=== PATIENT | male | born 1995 | race Hispanic/Latino ===

== ENCOUNTER 2017-06-19 19:35 | Emergency (ER) | payer OTHER ==
[2017-06-19 20:52] LABS: Bilirubin Negative (Negative); Blood, Urine Negative (Negative); Clarity CLEAR (Clear); Glucose, Urine (Dipstick) Negative (Negative); Leukocyte Negative (Negative); Nitrite Negative (Negative); Protein, Urine (Dipstick) Negative (Neg-Trace); Specific Gravity, Urine 1.024 (1.002-1.036); Urobilinogen 0.2 mg/dL (0.2-1.0)
[2017-06-20 01:05] LABS: #Basophils 0.1 thou/uL (0.0-0.2); #Eosinphils 0.2 thou/uL (0.0-0.7); #Lymphocytes 2.2 thou/uL (1.20-3.40); #Monocytes 0.8 thou/uL (0.11-0.59); #Neutrophils 4.4 thou/uL (1.40-6.50); %Eosinophils 2.8 % (0.0-10.0); %Lymphocytes 28.4 % (21.0-51.0); %Monocytes 9.8 % (0.0-10.0); Hemoglobin 15.7 g/dL (14.0-18.0); Mean Corpuscular HGB CONC 33.5 g/dL (32.0-36.0); Mean Corpuscular Hemoglobin 31.4 pg (27.0-31.0); Mean Corpuscular Volume 93.6 fl (80.0-94.0); Mean Platelet Volume 8.7 fL (7.4-10.4); Platelet Count 234 thou/uL (130-400); RBC Distribution Width 11.3 % (11.5-14.5); White Blood Cell (WBC) Count 7.7 thou/uL (4.8-10.8)
[2017-06-20 01:23] LABS: ALT (SGPT) 16 U/L (8-55); AST (SGOT) 13 U/L (5-34); Albumin 4.2 g/dL (3.5-5.0); Alkaline Phosphatase 89 U/L (40-150); Anion Gap 17 mmol/L (10-20); BUN (Urea Nitrogen) 8 mg/dL (8.9-20.6); Bilirubin, Total 0.4 mg/dL (0.2-1.2); Calc. Creatinine Clearance 0 mL/min (70-130); Calcium 9.4 mg/dL (7.8-10.44); Carbon Dioxide 27 mmol/L (22-29); Chloride 100 mmol/L (98-107); Estimated GFR-MDRD Greater than 90; Globulin 3.5 g/dL (2.4-3.5); Glucose 102 mg/dL (70-105); Lipase 8 U/L (8-78); Potassium 3.8 mmol/L (3.5-5.1); Protein, Total 7.7 g/dL (6.0-8.3); Sodium 140 mmol/L (136-145)
== END 2017-06-20 02:00 | disposition home or self-care (01) ==
LOC: ERS 19:35
DX: R19.7 Diarrhea, unspecified (principal); F20.9 Schizophrenia, unspecified
CPT/HCPCS: 36415; 80053; 81003; 83690; 85025; 87045; 87046; 87449; 87899; 99284

== ENCOUNTER 2017-08-28 00:14 | Emergency (ER) | payer OTHER ==
[2017-08-28 02:02] LABS: #Eosinphils 0.2 thou/uL (0.0-0.7); #Lymphocytes 3.1 thou/uL (1.20-3.40); #Monocytes 0.7 thou/uL (0.11-0.59); #Neutrophils 4.6 thou/uL (1.40-6.50); %Basophils 0.1 % (0.0-1.0); %Eosinophils 2.8 % (0.0-10.0); %Lymphocytes 35.8 % (21.0-51.0); %Monocytes 8.4 % (0.0-10.0); %Neutrophils 52.9 % (42.0-75.0); Hemoglobin 14.6 g/dL (14.0-18.0); Mean Corpuscular HGB CONC 35.9 g/dL (32.0-36.0); Mean Corpuscular Hemoglobin 32.6 pg (27.0-31.0); Mean Corpuscular Volume 90.9 fl (80.0-94.0); Mean Platelet Volume 7.9 fL (7.4-10.4); Platelet Count 232 thou/uL (130-400); RBC Distribution Width 11.3 % (11.5-14.5); Red Blood Cell (RBC) Count 4.47 mill/uL (4.70-6.10); White Blood Cell (WBC) Count 8.7 thou/uL (4.8-10.8)
[2017-08-28 02:23] LABS: Acetaminophen Less than 6.0 mcg/mL (10.0-30.0); Alcohol Less than 10 mg/dL (Less than 10); Salicylate Less than 8.0 mg/dL (15.0-30.0)
[2017-08-28 02:25] LABS: ALT (SGPT) 14 U/L (8-55); AST (SGOT) 13 U/L (5-34); Albumin 4.3 g/dL (3.5-5.0); Alkaline Phosphatase 77 U/L (40-150); Anion Gap 12 mmol/L (10-20); BUN (Urea Nitrogen) 17 mg/dL (8.9-20.6); Bilirubin, Total 0.4 mg/dL (0.2-1.2); CK (CPK) 116 U/L (30-200); Calc. Creatinine Clearance 0 mL/min (70-130); Calcium 9.7 mg/dL (7.8-10.44); Carbon Dioxide 30 mmol/L (22-29); Chloride 101 mmol/L (98-107); Estimated GFR-MDRD Greater than 90; Globulin 3.1 g/dL (2.4-3.5); Glucose 95 mg/dL (70-105); Protein, Total 7.4 g/dL (6.0-8.3); Sodium 139 mmol/L (136-145)
[2017-08-28 02:55] LABS: Bilirubin Negative (Negative); Blood, Urine Negative (Negative); Clarity CLEAR (Clear); Glucose, Urine (Dipstick) Negative (Negative); Leukocyte Negative (Negative); Nitrite Negative (Negative); Protein, Urine (Dipstick) Negative (Neg-Trace); Specific Gravity, Urine 1.022 (1.002-1.036); Urobilinogen 0.2 mg/dL (0.2-1.0)
[2017-08-28 02:59] LABS: Medtox Reader # READER 4
[2017-08-28 03:01] LABS: Amphetamine Not Detected (NotDetected); Barbiturates Screen Not Detected (NotDetected); Benzodiazepine Screen Not Detected (NotDetected); Cocaine Metabolite Screen Not Detected (NotDetected); Medtox Control Line Valid? VALID (VALID); Methadone Not Detected (NotDetected); Methamphetamine Not Detected (NotDetected); Opiate Screen Not Detected (NotDetected); Oxycodone Screen Not Detected (NotDetected); Phencyclidine (PCP) Not Detected (NotDetected); THC/Cannabinoid Screen Not Detected (NotDetected); Tricyclic Screen Not Detected (NotDetected)
[2017-08-28] MEDS ORDERED: hydrOXYzine 25 MG TAB PO SCH (08:00)
[2017-08-28] MEDS ORDERED: hydrOXYzine 25 MG TAB ONE (08:04)
[2017-08-28] MEDS ORDERED: FLUoxetine HCl 20 MG CAP PO SCH (09:00)
--- NOTE | 2017-10-03 22:50 | EKG ---
Test Reason : Blood Pressure : / mmHG Vent. Rate : 078 BPM Atrial Rate : 078 BPM P-R Int : 156 ms QRS Dur : 094 ms QT Int : 376 ms P-R-T Axes : 024 000 024 degrees QTc Int : 428 ms Normal sinus rhythm Normal ECG Confirmed by HARLEY KARIMI MD ([id number]), script editor PAKO OLVERA ([id number]) on 10/03/2017 10:50:08 PM Referred By: Confirmed By:HARLEY KARIMI MD
== END 2017-08-28 14:44 ==
LOC: ERS 00:14
DX: T55.1X2A Toxic effect of detergents, intentional self-harm, initial encounter (principal); T54.92XA Toxic effect of unspecified corrosive substance, intentional self-harm, initial encounter; F32.9 Major depressive disorder, single episode, unspecified; F20.9 Schizophrenia, unspecified; Z79.899 Other long term (current) drug therapy
CPT/HCPCS: 36415; 80053; 80306; 80307; 81003; 82550; 84443; 85025; 93005; 94760

== ENCOUNTER 2018-03-26 16:41 | Inpatient (IN) | payer OTHER ==
[2018-03-26 17:13] LABS: Hemoglobin 16.5 g/dL (14.0-18.0); Mean Corpuscular HGB CONC 33.9 g/dL (32.0-36.0); Mean Corpuscular Hemoglobin 31.6 pg (27.0-31.0); Mean Corpuscular Volume 93.1 fL (78.0-98.0); Mean Platelet Volume 8.3 fL (7.4-10.4); Platelet Count 260 thou/uL (130-400); RBC Distribution Width 11.5 % (11.5-14.5); Red Blood Cell (RBC) Count 5.21 mill/uL (4.70-6.10); White Blood Cell (WBC) Count 9.1 thou/uL (4.8-10.8)
[2018-03-26 17:23] LABS: Bilirubin Negative (Negative); Blood, Urine Negative (Negative); Clarity CLOUDY (Clear); Glucose, Urine (Dipstick) Negative (Negative); Leukocyte Negative (Negative); Nitrite Negative (Negative); Protein, Urine (Dipstick) Negative (Neg-Trace); Specific Gravity, Urine 1.011 (1.002-1.036); Urobilinogen 0.2 mg/dL (0.2-1.0); pH, Urine 7.5 (5.0-9.0)
[2018-03-26 17:27] LABS: Band 1 % (5-11); Eosinophils 3 % (0-10); Lymphocytes 40 % (21-51); MDiff Complete? YES; Monocytes 4 % (0-10); Neutrophil 39 % (42-75); PLT Morphology Comment Appears Adequate; RBC Morphology Normal; Reactive Lymphocytes 13 % (0-10)
[2018-03-26 17:32] LABS: Amphetamine Not Detected (NotDetected); Barbiturates Screen Not Detected (NotDetected); Benzodiazepine Screen Detected (NotDetected); Cocaine Metabolite Screen Not Detected (NotDetected); Medtox Control Line Valid? VALID (VALID); Medtox Reader # READER 1; Methadone Not Detected (NotDetected); Methamphetamine Not Detected (NotDetected); Opiate Screen Not Detected (NotDetected); Oxycodone Screen Not Detected (NotDetected); Phencyclidine (PCP) Not Detected (NotDetected); THC/Cannabinoid Screen Not Detected (NotDetected); Tricyclic Screen Not Detected (NotDetected)
[2018-03-26 17:37] LABS: ALT (SGPT) 23 U/L (8-55); AST (SGOT) 21 U/L (5-34); Acetaminophen Less than 6.0 mcg/mL (10.0-30.0); Albumin 4.7 g/dL (3.5-5.0); Alcohol Less than 10 mg/dL (Less than 10); Alkaline Phosphatase 87 U/L (40-150); Anion Gap 19 mmol/L (10-20); BUN (Urea Nitrogen) 13 mg/dL (8.9-20.6); Bilirubin, Total 0.3 mg/dL (0.2-1.2); CK (CPK) 140 U/L (30-200); Calc. Creatinine Clearance 0 mL/min (70-130); Calcium 9.7 mg/dL (7.8-10.44); Carbon Dioxide 22 mmol/L (22-29); Chloride 99 mmol/L (98-107); Estimated GFR-MDRD Greater than 90; Globulin 3.6 g/dL (2.4-3.5); Glucose 103 mg/dL (70-105); Potassium 3.5 mmol/L (3.5-5.1); Protein, Total 8.3 g/dL (6.0-8.3); Salicylate Less than 8.0 mg/dL (15.0-30.0); Sodium 136 mmol/L (136-145)
[2018-03-26] MEDS ORDERED: Ondansetron PF 4 MG/2 ML Vial ONE (19:05)
[2018-03-26 22:17] VITALS: BMI 33.5
[2018-03-26] MEDS ORDERED: Acetaminophen 325 MG TAB PO PRN (22:56)
[2018-03-26] MEDS ORDERED: Ondansetron ODT 4 MG TAB PO PRN (22:56)
[2018-03-26] MEDS ORDERED: Acetaminophen 650 MG Suppository PR PRN (22:56)
[2018-03-26] MEDS: Sodium Chloride 0.9% 1,000 ML IV SCH (23:30)
[2018-03-27] MEDS ORDERED: Ondansetron PF 4 MG/2 ML Vial ONE (03:42)
[2018-03-27 04:59] LABS: #Lymphocytes 0.9 thou/uL (1.20-3.40); #Monocytes 0.2 thou/uL (0.11-0.59); #Neutrophils 8.9 thou/uL (1.40-6.50); %Basophils 0.1 % (0.0-1.0); %Eosinophils 0.1 % (0.0-10.0); %Lymphocytes 9.1 % (21.0-51.0); %Monocytes 1.8 % (0.0-10.0); %Neutrophils 88.8 % (42.0-75.0); Hemoglobin 15.2 g/dL (14.0-18.0); Mean Corpuscular HGB CONC 34.1 g/dL (32.0-36.0); Mean Corpuscular Hemoglobin 31.6 pg (27.0-31.0); Mean Corpuscular Volume 92.7 fL (78.0-98.0); Mean Platelet Volume 8.3 fL (7.4-10.4); Platelet Count 249 thou/uL (130-400); RBC Distribution Width 11.6 % (11.5-14.5); Red Blood Cell (RBC) Count 4.81 mill/uL (4.70-6.10)
[2018-03-27 05:13] LABS: Anion Gap 21 mmol/L (10-20); BUN (Urea Nitrogen) 12 mg/dL (8.9-20.6); Calc. Creatinine Clearance 224 mL/min (70-130); Carbon Dioxide 16 mmol/L (22-29); Chloride 103 mmol/L (98-107); Estimated GFR-MDRD Greater than 90; Glucose 137 mg/dL (70-105); Potassium 4.1 mmol/L (3.5-5.1); Sodium 136 mmol/L (136-145)
[2018-03-27] MEDS: Sodium Chloride 0.9% 1,000 ML IV SCH ×5 (06:03→21:34)
--- NOTE | 2018-03-27 08:54 | HP ---
CHIEF COMPLAINT: Overdose. HISTORY OF PRESENT ILLNESS: The patient is a 22-year-old male with no significant past medical histo ry, presenting with Depakote overdose. Per family members and electronic medical records, patient to ok 10 pills of Depakote. Per the mother, the patient is schizophrenic, and on discussing the medicat ions that the patient takes, per family the patient stopped taking his medication for the last 3 week s, because the patient felt good and the patient was not hearing voices. At this time, the patient i s currently obtunded and no associated symptoms can be obtained from the patient. REVIEW OF SYSTEMS: Unable to be obtained due to patient's mental status. PAST MEDICAL HISTORY: No past medical history. FAMILY HISTORY: Reviewed and noncontributory. PAST SURGICAL HISTORY: Appendectomy. PSYCHIATRIC HISTORY: The patient has history of schizophrenia. SOCIAL HISTORY: The patient smokes tobacco. The patient denies any alcohol use and denies any illic it drug use. ALLERGIES: No known drug allergies. CURRENT MEDICATIONS: 1. Patient takes divalproex 500 mg. 2. Patient takes Haldol 20 mg. PHYSICAL EXAMINATION: VITAL SIGNS: Blood pressure is 120/74, heart rate of 124, respiratory rate of 20, temperature of 98. 1, O2 saturation is 97 on room air when the patient came in. GENERAL APPEARANCE: Currently, patient is lying in bed, a little bit agitated, but the patient does not appear to be in any acute distress. HEENT: Normocephalic, atraumatic. Pupils are equally round and reactive to light. The patient's pu pils are dilated, reactive to light. Mucous membranes are moist. NECK: Trachea is midline. No JVD. Full range of motion. LUNGS: Clear to auscultation bilaterally. No wheezing, no rales, no rhonchi appreciated. CARDIOVASCULAR: Positive S1 and S2, regular rate and rhythm, no murmurs, no gallops, no rubs appreci ated. ABDOMEN: Soft, nontender, nondistended. Positive bowel sounds. EXTREMITIES: Upper extremities, 5/5 upper extremity strength with good pulses. A 5/5 lower extremit y strength with good pulses. No edema noted. NEUROLOGIC: Cranial nerves II-XII grossly intact. No focal neurologic deficits noted. SKIN: Warm, dry, and intact. ED COURSE: The patient received Zofran 4 mg, normal saline 1 liter. LABORATORY DATA: WBC is 9.1, hemoglobin is 16.5, hematocrit is 48.5, MCV is 93.1, platelet count is 260. Chemistry: Sodium is 136, potassium 3.5, chloride is 99, carbon dioxide 22, anion gap of 19, B UN is 13, creatinine 0.77, glucose is 103, calcium is 9.7, AST 21, ALT 23. Creatine kinase is 140. ASSESSMENT AND PLAN: This is a 22-year-old male, being admitted to [facility] for, 1. Medication overdose. At this point, the patient is obtunded and a little confused. At this poin t, we are going to continue patient on supportive care. We will give IV fluids and we will monitor t he patient closely. We will give Ativan if patient becomes too aggressive or we can also give Haldol for sedation if patient becomes too aggressive. 2. Deep venous thrombosis and gastrointestinal prophylaxis.
[2018-03-27] MEDS: Ondansetron PF 4 MG/2 ML Vial IVP PRN (09:47)
--- NOTE | 2018-03-27 14:00 | PDOC.PN ---
- Subjective Encounter Start Date: 03/27/18 Encounter Start Time: 11:35 -: old records requested/rev Pt seen and examined, chart reviewed in its entirety, this is my first visit with this patient. Follow up for overdose, schizphrenia, AMS No F/C, no N/V/D/C, no CP or sOB, no cough or sputum. Pt very agitated today, sleeping at present. discusse keyshawn mom at the bedside, she diesnt know what he took nor his recreational drugs All systems reviewed and neg x as above - Objective Resuscitation Status: Resuscitation Status FULL:Full Resuscitation MAR Reviewed: Yes Vital Signs & Weight: Vital Signs (12 hours) Temp Pulse Resp BP Pulse Ox 03/27/18 12:10 98.6 F 122 H 19 118/54 L 92 L 03/27/18 10:05 139 H 22 H 138/64 97 03/27/18 10:00 139 H 24 H 139/64 97 03/27/18 09:43 99 03/27/18 07:39 98.6 F 109/54 L 95 03/27/18 06:05 108 H 22 H 105/45 L 99 03/27/18 04:40 127 H 22 H 138/61 100 Weight Weight 240 lb I&O: 03/26/18 03/27/18 03/28/18 06:59 06:59 06:59 Intake Total 1000 Output Total 1200 Balance -200 Result Diagrams: 03/27/18 04:46 03/27/18 04:46 Additional Labs: Accuchecks 03/27/18 10:00 POC Glucose 119 H Radiology Reviewed by me: Yes EKG Reviewed by me: Yes Phys Exam - Physical Examination Constitutional: NAD HEENT: PERRLA, moist MMs, sclera anicteric, oral pharynx no lesions Neck: no nodes, no JVD, supple, full ROM Respiratory: no wheezing, no rales, no rhonchi, clear to auscultation bilateral Cardiovascular: RRR, no significant murmur, no rub Gastrointestinal: soft, non-tender, no distention, positive bowel sounds Musculoskeletal: no edema Neurological: moves all 4 limbs Lymphatic: no nodes Skin: no rash, normal turgor, cap refill <2 seconds Dx/Plan (1) Schizophrenia Code(s): F20.9 - SCHIZOPHRENIA, UNSPECIFIED Status: Chronic Qualifiers: Schizophrenia type: unspecified Qualified Code(s): F20.9 - Schizophrenia, unspecified (2) Overdose Code(s): T50.901A - POISONING BY UNSP DRUG/MEDS/BIOL SUBST, ACCIDENTAL, INIT Status: Acute Qualifiers: Encounter type: initial encounter (3) Toxic encephalopathy Code(s): G92 - TOXIC ENCEPHALOPATHY Status: Acute (4) HLD (hyperlipidemia) Code(s): E78.5 - HYPERLIPIDEMIA, UNSPECIFIED Status: Chronic Qualifiers: Hyperlipidemia type: unspecified Qualified Code(s): E78.5 - Hyperlipidemia , unspecified - Plan cont current plan of care, plan discussed w/ family * .
[2018-03-27] MEDS ORDERED: Ziprasidone 20 MG VIAL ONE (15:25)
[2018-03-27] MEDS ORDERED: Promethazine HCl 25 MG/ML VIAL SLOW IVP PRN (16:05)
[2018-03-27] MEDS ORDERED: Promethazine 25 MG TAB PO PRN (16:06)
--- NOTE | 2018-03-27 18:04 | CON ---
DATE OF CONSULTATION: 03/27/2018 HISTORY: This is a 22-year-old morbidly obese gentleman. His mother is at the bedside. He goes to [facility] for care. He presented last night for an overdose of apparently Depakote, is unknown how much h e took, apparently 10 pills as per the ER. He did not take any alcohol or other drugs. Apparently, he has never done this before. PAST MEDICAL HISTORY: Pertinent for schizophrenia. PAST SURGICAL HISTORY: Appendix. HOME MEDICATIONS: Chronic medications from home include Prozac 20, Haldol 10 twice a day, Depakote 2 50 twice a day, Cogentin 0.5. He is in the MICU for consultation. REVIEW OF SYSTEMS: Otherwise, unremarkable. PHYSICAL EXAMINATION: GENERAL: He is lethargic, but arousable. VITAL SIGNS: Blood pressure 138/64, sats are 97% on room air, respirations 22, pulse of 130, tempera ture 98. CHEST: Decreased breath sounds, no wheezing. CARDIAC: Normal S1, S2, no gallops. ABDOMEN: Soft, no masses. LABORATORY DATA: White count 10,000. His electrolytes are normal. His drug screen shows benzos. His valproic acid was 42.1, which is within normal range. IMPRESSION: 1. Presumed overdose, on Depakote though his levels are normal. 2. Morbid obesity with encephalopathy. PLAN: Continue observation. Restart home medication. Pulmonary Critical Care will follow while in the IMCU. Consultation note, 70 minutes, 50% spent in direct patient care.
[2018-03-27] MEDS ORDERED: Sterile Water 10 ML ONE (18:34)
[2018-03-27] MEDS: Ziprasidone 20 MG VIAL IM PRN (18:36)
[2018-03-28] MEDS ORDERED: Sterile Water 10 ML ONE (03:18)
[2018-03-28] MEDS: Ziprasidone 20 MG VIAL IM PRN (03:22)
[2018-03-28] MEDS: Sodium Chloride 0.9% 1,000 ML IV SCH ×2 (04:20→17:58)
[2018-03-28] MEDS: Ondansetron PF 4 MG/2 ML Vial IVP PRN ×2 (06:37→18:02)
[2018-03-28] MEDS: Benztropine 1 MG TAB PO SCH ×2 (09:01→20:16)
[2018-03-28] MEDS: Haloperidol 5 MG TAB PO SCH ×2 (09:01→20:16)
[2018-03-28] MEDS: Divalproex Sodium 250 MG (DR) TAB PO SCH ×2 (09:02→20:16)
[2018-03-28] MEDS: FLUoxetine HCl 20 MG CAP PO SCH (09:02)
--- NOTE | 2018-03-28 11:43 | PDOC.PN ---
- Subjective Encounter Start Date: 03/28/18 Encounter Start Time: 10:00 Follow up for overdose, schizophrenia, toxic encephlaopathy Pt trasnferred ot CCU on Precedex gtt for agitation. arousable, talking, appears to be less agitated, in 4 point restraints. Nursing reports come agitation episodically, home meds restarted No F/C, no N/V/D/C, no CP or sOB, no cough or sputum All systems reviewed and neg x as above - Objective Resuscitation Status: Resuscitation Status FULL:Full Resuscitation MAR Reviewed: Yes Vital Signs & Weight: Vital Signs (12 hours) Temp 03/28/18 07:00 98.3 F 03/28/18 04:00 98.5 F 03/28/18 00:00 98 F Weight Weight 244 lb 14.937 oz Most Recent Monitor Data Heart Rate from ECG 80 NIBP 100/57 NIBP BP-Mean 71 Respiration from ECG 20 SpO2 100 I&O: 03/27/18 03/28/18 03/29/18 06:59 06:59 06:59 Intake Total 1000 2227.5 150 Output Total 1200 2025 490 Balance -200 202.5 -340 Result Diagrams: 03/27/18 04:46 03/27/18 04:46 Phys Exam - Physical Examination Constitutional: NAD HEENT: PERRLA, moist MMs, sclera anicteric, oral pharynx no lesions Neck: no nodes, no JVD, supple, full ROM Respiratory: no wheezing, no rales, no rhonchi, clear to auscultation bilateral Cardiovascular: RRR, no significant murmur, no rub Gastrointestinal: soft, non-tender, no distention, positive bowel sounds Musculoskeletal: no edema Neurological: non-focal, normal sensation, moves all 4 limbs Lymphatic: no nodes Skin: no rash, normal turgor, cap refill <2 seconds Dx/Plan (1) Schizophrenia Code(s): F20.9 - SCHIZOPHRENIA, UNSPECIFIED Status: Chronic Qualifiers: Schizophrenia type: unspecified Qualified Code(s): F20.9 - Schizophrenia, unspecified (2) Overdose Code(s): T50.901A - POISONING BY UNSP DRUG/MEDS/BIOL SUBST, ACCIDENTAL, INIT Status: Acute Qualifiers: Encounter type: initial encounter (3) Toxic encephalopathy Code(s): G92 - TOXIC ENCEPHALOPATHY Status: Acute (4) HLD (hyperlipidemia) Code(s): E78.5 - HYPERLIPIDEMIA, UNSPECIFIED Status: Chronic Qualifiers: Hyperlipidemia type: unspecified Qualified Code(s): E78.5 - Hyperlipidemia , unspecified - Plan * .
--- NOTE | 2018-03-28 12:58 | PRG ---
DATE OF SERVICE: 03/28/2018 SUBJECTIVE: He is transferred from the MICU to the ICU, because he was still combative. He was plac ed on Precedex to which he is better this morning. He is awake, responsive, less agitated. I am goi ng to restart all his psych medicine. [facility] sees him for schizophrenia. OBJECTIVE: VITAL SIGNS: Sats are 90%, blood pressure . CHEST: No wheezing. CARDIAC: Normal S1 and S2. No gallops. ABDOMEN: Soft, no masses. IMPRESSION: 1. Status post presumed overdose. 2. Bipolar, schizophrenia. 3. Encephalopathy. PLAN: Diet, PT, and supportive care. We will follow.
[2018-03-29] MEDS: Sodium Chloride 0.9% 1,000 ML IV SCH ×2 (00:29→08:12)
[2018-03-29 05:10] LABS: #Basophils 0.1 thou/uL (0.0-0.2); #Eosinphils 0.1 thou/uL (0.0-0.7); #Lymphocytes 2.8 thou/uL (1.20-3.40); #Monocytes 0.6 thou/uL (0.11-0.59); %Basophils 1.4 % (0.0-1.0); %Eosinophils 1.7 % (0.0-10.0); %Lymphocytes 36.8 % (21.0-51.0); %Monocytes 8.1 % (0.0-10.0); Hemoglobin 13.8 g/dL (14.0-18.0); Mean Corpuscular Hemoglobin 31.4 pg (27.0-31.0); Mean Corpuscular Volume 92.5 fL (78.0-98.0); Mean Platelet Volume 8.4 fL (7.4-10.4); Platelet Count 206 thou/uL (130-400); RBC Distribution Width 11.4 % (11.5-14.5); White Blood Cell (WBC) Count 7.6 thou/uL (4.8-10.8)
[2018-03-29 05:23] LABS: Anion Gap 10 mmol/L (10-20); BUN (Urea Nitrogen) 5 mg/dL (8.9-20.6); Calc. Creatinine Clearance 278 mL/min (70-130); Calcium 8.4 mg/dL (7.8-10.44); Carbon Dioxide 25 mmol/L (22-29); Chloride 105 mmol/L (98-107); Estimated GFR-MDRD Greater than 90; Glucose 108 mg/dL (70-105); Magnesium 2.1 mg/dL (1.6-2.6); Potassium 3.4 mmol/L (3.5-5.1); Sodium 137 mmol/L (136-145)
[2018-03-29] MEDS: Benztropine 1 MG TAB PO SCH (08:10)
[2018-03-29] MEDS: FLUoxetine HCl 20 MG CAP PO SCH (08:10)
[2018-03-29] MEDS: Haloperidol 5 MG TAB PO SCH (08:11)
[2018-03-29] MEDS: Divalproex Sodium 250 MG (DR) TAB PO SCH (08:11)
--- NOTE | 2018-03-29 08:15 | PRG ---
DATE OF SERVICE: 03/29/2018 This morning he is doing better, eating breakfast. No shortness of breath, cough. PHYSICAL EXAMINATION: VITAL SIGNS: Sats are 100% on room air, blood pressure 129/80. GENERAL: He is no longer encephalopathic. CHEST: Chest reveals decreased breath sounds, no wheezing. CARDIAC: Normal S1, S2 mass. IMPRESSION: 1. Status post overdose. 2. Schizophrenia, bipolar. PLAN: He can be transferred out of the ICU. [facility] consult.
[2018-03-29 09:49] VITALS: BP 122/72; TEMP 98.7
--- NOTE | 2018-03-29 10:53 | DIS ---
DATE OF ADMISSION: 03/26/2018 DATE OF DISCHARGE: 03/29/2018 DISCHARGE DIAGNOSES: 1. Status post overdose with Depakote/benzodiazepines. 2. Toxic metabolic encephalopathy, resolving. 3. Schizophrenia. 4. Morbid obesity. CONSULTATIONS: Dr. Mccallum with Pulmonology Critical Care Service. PERTINENT LABORATORY AND X-RAY FINDINGS: Urine drug screen positive for benzodiazepines. Valproic a silvia level ranged between 42-58.3. Plasma alcohol level less than 10. HOSPITAL COURSE: The patient was initially admitted to the Critical Care Unit after presenting statu s post overdose on suspected Depakote. Urine drug screen was positive for benzodiazepines and caprice perdue was noted with encephalopathic changes and somnolence due to the ingestion. Patient was initially managed as a potential suicidal ideation/attempt; however, after [facility] evaluated the patient, no speci fic evidence to suggest suicidal ideation or attempt and patient likely ingested the benzodiazepines out of curiosity. The patient clinically stabilized with supportive management, IV fluids, and was t ransferred to the medical floor for observation. The patient overall remained clinically stable and was cleared by [facility] services for outpatient followup. I have examined the patient at the time of dis charge and discussed followup instructions. The patient overall is clinically stable and ready for d ischarge on 03/29/2018. DISCHARGE MEDICATIONS: 1. Cogentin 0.5 mg p.o. b.i.d. 2. Depakote 250 mg p.o. b.i.d. 3. Prozac 20 mg p.o. daily. 4. Haldol 10 mg p.o. b.i.d. FOLLOWUP: Patient to follow up with his primary care provider, Dr. Marilu Sagastume, within 7 days of d ischarge. The patient will follow up with [facility] on 03/30/2018. CONDITION ON DISCHARGE: Stable. ACTIVITY: Ad paula. DIET: Regular. CODE STATUS: FULL. DISPOSITION: Home with family, 03/29/2018.
== END 2018-03-29 11:45 | disposition home or self-care (01) | DRG 917 ==
LOC: ERS 16:41 → EDBD 16:41 → IMCU/EMU 20:56 → MERGE 20:56 → CCU 03-27 16:22 → T4-A 03-29 09:05
PROVIDERS: ADMIT Internal Medicine; ATTEND Internal Medicine
DX: T42.6X1A Poisoning by other antiepileptic and sedative-hypnotic drugs, accidental (unintentional), initial encounter (principal); G92 Toxic encephalopathy; Z68.34 Body mass index [BMI] 34.0-34.9, adult; E66.01 Morbid (severe) obesity due to excess calories; F20.9 Schizophrenia, unspecified; Z79.899 Other long term (current) drug therapy; F31.9 Bipolar disorder, unspecified; E78.5 Hyperlipidemia, unspecified
CPT/HCPCS: 36415; 36416; 80048; 80053; 80164; 80306; 80307; 81003; 82550; 83735; 85025; 93005; 96361; 96374; A4216; J2405; J3486; J7050; Q0162

== ENCOUNTER 2018-05-08 20:28 | Emergency (ER) | payer OTHER | END 2018-05-08 20:54 | disposition home or self-care (01) | LOC: ERS 20:28 | DX: T38.4X1A Poisoning by oral contraceptives, accidental (unintentional), initial encounter (principal); F20.9 Schizophrenia, unspecified; F17.210 Nicotine dependence, cigarettes, uncomplicated; Z79.899 Other long term (current) drug therapy | CPT/HCPCS: 99284 ==

== ENCOUNTER 2018-05-13 23:14 | Emergency (ER) | payer OTHER ==
--- NOTE | 2018-05-13 23:48 | RAD ---
CHEST PA AND LATERAL: 05/13/18 HISTORY: 22-year-old male with history of eating a nail prior to arrival. FINDINGS: There is a nail noted within the stomach positioned somewhat from anterior to posterior. Heart size i s normal. The lungs are clear. IMPRESSION: No acute intrathoracic disease. Evidence of a swallowed nail within the stomach. POS: [facility]
--- NOTE | 2018-05-13 23:49 | RAD ---
ABDOMEN ONE VIEW: 05/13/18 HISTORY: 22-year-old male with history of swallowed a nail prior to arrival. There is evidence for a metallic density foreign body in the shape of a nail within the stomach. No e vidence for free intraperitoneal air. No bowel obstruction. IMPRESSION: Evidence for a swallowed nail within the stomach. POS: [facility]
[2018-05-14 00:06] LABS: #Basophils 0.1 thou/uL (0.0-0.2); #Eosinphils 0.3 thou/uL (0.0-0.7); #Lymphocytes 3.1 thou/uL (1.20-3.40); #Monocytes 0.6 thou/uL (0.11-0.59); #Neutrophils 4.4 thou/uL (1.40-6.50); %Basophils 1.5 % (0.0-1.0); %Eosinophils 3.3 % (0.0-10.0); %Lymphocytes 36.5 % (21.0-51.0); %Monocytes 6.6 % (0.0-10.0); %Neutrophils 52.2 % (42.0-75.0); Hemoglobin 15.2 g/dL (14.0-18.0); Mean Corpuscular Hemoglobin 32.2 pg (27.0-31.0); Mean Corpuscular Volume 89.5 fL (78.0-98.0); Mean Platelet Volume 8.3 fL (7.4-10.4); Platelet Count 288 thou/uL (130-400); RBC Distribution Width 11.4 % (11.5-14.5); Red Blood Cell (RBC) Count 4.73 mill/uL (4.70-6.10); White Blood Cell (WBC) Count 8.4 thou/uL (4.8-10.8)
[2018-05-14 00:25] LABS: ALT (SGPT) 18 U/L (8-55); AST (SGOT) 17 U/L (5-34); Acetaminophen Less than 6.0 mcg/mL (10.0-30.0); Albumin 4.3 g/dL (3.5-5.0); Alcohol Less than 10 mg/dL (Less than 10); Alkaline Phosphatase 93 U/L (40-150); Anion Gap 15 mmol/L (10-20); BUN (Urea Nitrogen) 9 mg/dL (8.9-20.6); Bilirubin, Total 0.3 mg/dL (0.2-1.2); Calc. Creatinine Clearance 0 mL/min (70-130); Calcium 9.4 mg/dL (7.8-10.44); Carbon Dioxide 25 mmol/L (22-29); Chloride 101 mmol/L (98-107); Estimated GFR-MDRD Greater than 90; Globulin 3.4 g/dL (2.4-3.5); Glucose 84 mg/dL (70-105); Protein, Total 7.7 g/dL (6.0-8.3); Salicylate Less than 8.0 mg/dL (15.0-30.0); Sodium 137 mmol/L (136-145)
[2018-05-14] MEDS ORDERED: Midazolam HCl 2 mg/2 ml Vial ONE (00:38)
[2018-05-14] MEDS ORDERED: Fentanyl 100 MCG/2 ML VIAL ONE (00:39)
--- NOTE | 2018-05-14 02:44 | CON ---
DATE OF CONSULTATION: 05/14/2018 GI INPATIENT CONSULTATION NOTE REASON FOR CONSULTATION: Swallowed a nail. HISTORY OF PRESENT ILLNESS: Lamont Bae is a 22-year-old man with a past medical history of appendectomy back in 2014 and also schizophrenia. He has had multiple recent presentations in recent months for ingesting things that he should not. He had a brief admission with overdose of benzodiazepines last year. He had a presentation in late April just a week ago after having ingested some kind of [place] control pill. He presented this evening they state about 1 hour after ingesting a 7 cm nail. He tells me he did this "because it would give me the power." His affect is obviously inappropriate. He is laughing about the entire situation. His mother is here with him. He denies any pain in the throat, pain in the chest or abdominal pain. He has not had any bleeding or shortness of breath. He is hemodynamically stable and really otherwise asymptomatic. Abdominal x-ray confirms a 7 cm nail within the gastric lumen. ALLERGIES: NO KNOWN DRUG ALLERGIES. MEDICATIONS: 1. Haloperidol. 2. Benztropine. PAST MEDICAL HISTORY: Appendectomy, schizophrenia, and prior history of inappropriate ingestions. SOCIAL HISTORY: The patient is schizophrenic, lives with his mother. He smokes tobacco. No alcohol use. FAMILY HISTORY: Noncontributory. PHYSICAL EXAMINATION: GENERAL: Well-appearing 22-year-old man sitting up in bed comfortably in no distress. MENTAL: His affect is inappropriate. He appears quite happy and is laughing quite a bit. He is in no distress. SKIN: No jaundice. No rashes were palpable. EYES: No scleral icterus. Extraocular movements intact. ENT: Mucous membranes moist. No oral lesions. LYMPH: No submandibular or supraclavicular lymphadenopathy. THYROID: Nontender to palpation. HEART: Regular rate and rhythm. LUNGS: Clear to auscultation bilaterally. ABDOMEN: Bowel sounds present, soft and nontender to palpation throughout. EXTREMITIES: No peripheral edema. VESSELS: Radial pulses 2+ bilaterally. NEURO: Cranial nerves 2 through 12 intact bilaterally. No focal deficits. LABORATORY STUDIES: WBC 8.4, hemoglobin 15.2, platelets 288. Sodium 137, potassium 4.0, BUN 9, creatinine 0.82. LFTs all normal with total bilirubin 0.3, alkaline phosphatase 93, AST 17, ALT 18, albumin 4.3. Plasma alcohol levels less than 10. Acetaminophen less than 6, salicylates less than 8. ASSESSMENT AND PLAN: Gastric foreign body, 7 cm nail. I discussed with the patient and his mother that this situation is serious. Unfortunately, this sharp metallic object is 7 cm and too long to be expected to pass beyond the duodenal sweep on its own. Therefore, EGD is warranted urgently tonight. We are going to try to extract this nail out of the esophagus without causing any significant injury. However, the procedure is going to be quite high risk. I discussed the risks in detail including bleeding or perforation, injury to the esophagus or stomach or even vasculature, which might require urgent surgical intervention tonight. I anticipate following the procedure, he will be sent back to the emergency department for [facility] evaluation. Job ID: [id number]
--- NOTE | 2018-05-14 03:14 | OP ---
DATE OF PROCEDURE: 05/14/2018 SURGEON: Brayden Bauer MD [employer]ONE[employer]OD[employer]ER SURGEON: None. PROCEDURE PERFORMED: EGD with foreign body removal from the stomach. INDICATION: This is a 22-year-old man who swallowed a 7 cm nail wrapped in a condom earlier tonight, gastric foreign body seen on x-ray imaging. MEDICATIONS: See Anesthesia record. FINDINGS: After discussion of the risks, benefits, and alternatives of the procedure, informed consent was obtained and witnessed. Pre endoscopic cardiopulmonary examination was satisfactory. Time-out was performed before sedation was achieved. Sedation was achieved with Anesthesia assistance in the endoscopy unit. The patient was endotracheally intubated for airway protection and placed in the left lateral decubitus position. We affixed a 25 cm esophageal over tube to a Pentax adult upper endoscope prior to starting the procedure. We did not have any longer over tubes available. The endoscope was passed through the mouth and beyond the oropharynx into the esophagus. The esophageal mucosa appeared normal. The endoscope was passed into the stomach. Forward and retroflexed views of the gastric mucosa were obtained. There was a large amount of food particles throughout the stomach, particularly in the gastric fundus obscuring the view of much of the fundus. There is a large opaque condom within the gastric fundus. We were unable to visualize the nail, which was within the condom, which had been tied off in a knot, due to the significant size of the condom and its opacity. I did briefly survey the mucosa of the gastric body and antrum. There are some areas of linear mucosal trauma, but this is quite superficial with no significant bleeding. The endoscope was passed through the pylorus and then the first and second portions of the duodenum, which appeared normal. Our attention was then turned towards trying to remove the foreign body. The esophageal over tube was advanced into position. We first used a snare loop to try to snare around the condom and grab the nail. This technique was ultimately unsuccessful due to my inability to visualize the nail and our inability to really grasp it. I was concerned that we would end up trying to pull the nail out by the condom and that it might end up in a transverse position causing injury. Therefore, we abandoned that technique. We then used a rat-tooth forceps and steadily worked on the condom ripping it up into shreds. In this fashion, we were able to extract several large pieces of the condom from the patient's mouth. Eventually, a large piece of the condom was grasped with a rat-tooth forceps and gently pulled proximally beyond the GE junction and into the esophageal over tube. I was still unable to visualize the nail, but upon very gentle traction of this piece, there was absolutely no resistance whatsoever and upon removing this last piece of condom, the 7 cm nail was within it. In this fashion, we were able to get out both the nail and all pieces of the condom. At this point, the esophageal over tube was removed and I made another careful examination of the gastric lining in the esophagus. There was no significant trauma to the esophageal mucosa, no bleeding. At this point, the endoscope was completely withdrawn and the patient allowed to recover. The patient tolerated the procedure well. There were no immediate postprocedure complications. IMPRESSION: 1. Successful removal of gastric foreign body (7 cm nail within the large condom). 2. Some areas of minor mucosal trauma in the gastric body. 3. Gastric fundus full of food. RECOMMENDATIONS: 1. The patient will be going back to the emergency department from PACU. 2. Advise getting a chest x-ray and abdominal x-ray once he is back in the ER just to assure no free air. 3. Psychiatric consultation. Some kind of behavioral strategies going to need to be worked out to keep this from happening again. 4. If no free air on imaging, the patient can have a regular diet. Job ID: [id number]
[2018-05-14 03:39] LABS: Amphetamine Not Detected (NotDetected); Barbiturates Screen Not Detected (NotDetected); Benzodiazepine Screen Not Detected (NotDetected); Cocaine Metabolite Screen Not Detected (NotDetected); Medtox Control Line Valid? VALID (VALID); Medtox Reader # READER 4; Methadone Not Detected (NotDetected); Methamphetamine Not Detected (NotDetected); Opiate Screen Not Detected (NotDetected); Oxycodone Screen Not Detected (NotDetected); Phencyclidine (PCP) Not Detected (NotDetected); THC/Cannabinoid Screen Not Detected (NotDetected); Tricyclic Screen Not Detected (NotDetected)
--- NOTE | 2018-05-14 07:55 | RAD ---
ABDOMEN 2 VIEWS WITH 1 VIEW CHEST: Date: 05/14/18 HISTORY: Foreign body postop. COMPARISON: Abdomen radiograph prior day. FINDINGS: The radiopaque foreign object has been removed. There are some atelectatic changes in the lingula, wh ich are new. No pneumothorax. IMPRESSION: Interval removal of the foreign body. POS: [facility]
[2018-05-14] MEDS ORDERED: Benztropine 1 MG TAB PO SCH (09:00)
[2018-05-14] MEDS ORDERED: Haloperidol 5 MG TAB PO SCH (09:00)
[2018-05-14] MEDS ORDERED: Succinylcholine Chloride 20 MG/ML 10 ml SYRINGE FS ONE (12:32)
[2018-05-14] MEDS ORDERED: Ondansetron PF 4 MG/2 ML Vial ONE (12:32)
[2018-05-14] MEDS ORDERED: Dexamethasone 20 MG/5 ML VIAL ONE (12:32)
[2018-05-14] MEDS ORDERED: Glycopyrrolate 0.2 MG/ML 5 ML SYRINGE ONE (12:32)
[2018-05-14] MEDS ORDERED: PROPOFOL 200 MG/20 ML VIAL ONE (12:32)
== END 2018-05-14 21:57 ==
LOC: ERS 23:14
PROC: 0DC68ZZ Extirpation of Matter from Stomach, Via Natural or Artificial Opening Endoscopic (ICD-10-PCS; principal; 2018-05-14)
DX: T18.2XXA Foreign body in stomach, initial encounter (principal); F20.9 Schizophrenia, unspecified; F17.290 Nicotine dependence, other tobacco product, uncomplicated; Z79.899 Other long term (current) drug therapy
CPT/HCPCS: 36415; 71046; 74018; 74022; 80053; 80306; 80307; 84443; 85025; J2250; J3010

== ENCOUNTER 2018-08-13 12:45 | Emergency (ER) | payer OTHER ==
--- NOTE | 2018-08-13 13:52 | RAD ---
3 VIEWS LEFT ANKLE: Date: 08/13/18 COMPARISON: None. HISTORY: Twisted ankle while running, with left ankle pain. FINDINGS: Three views of the left ankle show no evidence of acute fracture or dislocation. Moderate diffuse sof t tissue swelling is seen. No degenerative changes are present. IMPRESSION: No evidence of acute osseous abnormality. POS: [facility]
== END 2018-08-13 14:38 | disposition home or self-care (01) ==
LOC: ERS 12:45
DX: S93.402A Sprain of unspecified ligament of left ankle, initial encounter (principal); E78.5 Hyperlipidemia, unspecified; F20.9 Schizophrenia, unspecified; F17.210 Nicotine dependence, cigarettes, uncomplicated; Z79.899 Other long term (current) drug therapy; X50.1XXA Overexertion from prolonged static or awkward postures, initial encounter

== ENCOUNTER 2018-09-09 00:49 | Emergency (ER) | payer OTHER ==
[2018-09-09 01:48] LABS: #Eosinphils 0.5 thou/uL (0.0-0.7); #Lymphocytes 2.3 thou/uL (1.20-3.40); #Monocytes 0.9 thou/uL (0.11-0.59); %Basophils 0.5 % (0.0-1.0); %Eosinophils 5.3 % (0.0-10.0); %Lymphocytes 26.2 % (21.0-51.0); %Monocytes 9.9 % (0.0-10.0); %Neutrophils 58.1 % (42.0-75.0); Hemoglobin 14.4 g/dL (14.0-18.0); Mean Corpuscular HGB CONC 34.3 g/dL (32.0-36.0); Mean Corpuscular Hemoglobin 30.8 pg (27.0-31.0); Mean Corpuscular Volume 89.8 fL (78.0-98.0); Mean Platelet Volume 8.5 fL (7.4-10.4); Platelet Count 220 thou/uL (130-400); RBC Distribution Width 11.6 % (11.5-14.5); Red Blood Cell (RBC) Count 4.67 mill/uL (4.70-6.10); White Blood Cell (WBC) Count 8.6 thou/uL (4.8-10.8)
[2018-09-09] MEDS ORDERED: Ondansetron ODT 4 MG TAB ONE (02:01)
[2018-09-09 02:08] LABS: Acetaminophen Less than 6.0 mcg/mL (10.0-30.0); Alcohol Less than 10 mg/dL (Less than 10); CK (CPK) 115 U/L (30-200); Salicylate Less than 8.0 mg/dL (15.0-30.0)
[2018-09-09 02:09] LABS: ALT (SGPT) 14 U/L (8-55); AST (SGOT) 15 U/L (5-34); Albumin 4.7 g/dL (3.5-5.0); Alkaline Phosphatase 99 U/L (40-150); Anion Gap 13 mmol/L (10-20); BUN (Urea Nitrogen) 15 mg/dL (8.9-20.6); Bilirubin, Total 0.5 mg/dL (0.2-1.2); Calc. Creatinine Clearance 0 mL/min (70-130); Calcium 9.9 mg/dL (7.8-10.44); Carbon Dioxide 26 mmol/L (22-29); Chloride 102 mmol/L (98-107); Estimated GFR-MDRD Greater than 90; Globulin 3.4 g/dL (2.4-3.5); Glucose 94 mg/dL (70-105); Lipase 6 U/L (8-78); Potassium 4.2 mmol/L (3.5-5.1); Protein, Total 8.1 g/dL (6.0-8.3); Sodium 137 mmol/L (136-145)
== END 2018-09-09 02:07 | disposition home or self-care (01) ==
LOC: ERS 00:49
DX: R19.7 Diarrhea, unspecified (principal); F20.9 Schizophrenia, unspecified; E78.5 Hyperlipidemia, unspecified; Z79.899 Other long term (current) drug therapy
CPT/HCPCS: 36415; 80053; 80307; 82550; 83690; 84443; 85025; 99284; Q0162

== ENCOUNTER 2018-10-28 01:56 | Emergency (ER) | payer OTHER ==
--- NOTE | 2018-10-28 12:35 | RAD ---
CHEST 1 VIEW: HISTORY: Drank motor oil 5 days ago. COMPARISON: 05/13/2018. FINDINGS: Heart size is within normal limits. The lungs are clear. IMPRESSION: No acute intrathoracic disease. No evidence for pneumonia or aspiration. Or other significant acute process. POS: [facility]
[2018-10-28 15:06] LABS: %Lymphocytes 46.9 % (21.0-51.0); %Neutrophils 36.4 % (42.0-75.0); Hemoglobin 14.2 g/dL (14.0-18.0); Mean Corpuscular HGB CONC 33.8 g/dL (32.0-36.0); Mean Corpuscular Hemoglobin 31.7 pg (27.0-31.0); Mean Corpuscular Volume 93.6 fL (78.0-98.0); Mean Platelet Volume 8.1 fL (7.4-10.4); Platelet Count 241 thou/uL (130-400); Red Blood Cell (RBC) Count 4.48 mill/uL (4.70-6.10); White Blood Cell (WBC) Count 9.4 thou/uL (4.8-10.8)
[2018-10-28 15:07] LABS: #Basophils 0.1 thou/uL (0.0-0.2); #Eosinphils 0.8 thou/uL (0.0-0.7); #Lymphocytes 4.4 thou/uL (1.20-3.40); #Monocytes 0.7 thou/uL (0.11-0.59); #Neutrophils 3.4 thou/uL (1.40-6.50); %Basophils 1.1 % (0.0-1.0); %Eosinophils 8.6 % (0.0-10.0); %Monocytes 7.1 % (0.0-10.0)
[2018-10-28 15:08] LABS: %Basophils 1.3 % (0.0-1.0); %Eosinophils 8.5 % (0.0-10.0); %Lymphocytes 44.6 % (21.0-51.0); %Monocytes 6.4 % (0.0-10.0); %Neutrophils 39.3 % (42.0-75.0); Hemoglobin 13.8 g/dL (14.0-18.0); Mean Corpuscular HGB CONC 34.3 g/dL (32.0-36.0); Mean Corpuscular Volume 93.2 fL (78.0-98.0); Mean Platelet Volume 8.5 fL (7.4-10.4); Platelet Count 227 thou/uL (130-400); RBC Distribution Width 11.9 % (11.5-14.5); Red Blood Cell (RBC) Count 4.32 mill/uL (4.70-6.10); White Blood Cell (WBC) Count 8.1 thou/uL (4.8-10.8)
[2018-10-28 15:09] LABS: #Basophils 0.1 thou/uL (0.0-0.2); #Eosinphils 0.7 thou/uL (0.0-0.7); #Lymphocytes 3.6 thou/uL (1.20-3.40); #Monocytes 0.5 thou/uL (0.11-0.59); #Neutrophils 3.2 thou/uL (1.40-6.50)
[2018-10-28 15:13] LABS: ALT (SGPT) 14 U/L (8-55); AST (SGOT) 14 U/L (5-34); Albumin 4.3 g/dL (3.5-5.0); Alkaline Phosphatase 64 U/L (40-150); Anion Gap 14 mmol/L (10-20); BUN (Urea Nitrogen) 13 mg/dL (8.9-20.6); Bilirubin, Total 0.4 mg/dL (0.2-1.2); Calc. Creatinine Clearance 0 mL/min (70-130); Calcium 9.2 mg/dL (7.8-10.44); Carbon Dioxide 23 mmol/L (22-29); Chloride 105 mmol/L (98-107); Estimated GFR-MDRD Greater than 90; Globulin 2.8 g/dL (2.4-3.5); Glucose 100 mg/dL (70-105); Potassium 3.9 mmol/L (3.5-5.1); Protein, Total 7.1 g/dL (6.0-8.3); Sodium 138 mmol/L (136-145)
[2018-10-28 15:15] LABS: Acetaminophen Less than 6.0 mcg/mL (10.0-30.0)
[2018-10-28 15:16] LABS: Alcohol Less than 10 mg/dL (Less than 10); Salicylate Less than 8.0 mg/dL (15.0-30.0)
--- NOTE | 2018-10-30 16:55 | EKG ---
Test Reason : Blood Pressure : / mmHG Vent. Rate : 091 BPM Atrial Rate : 091 BPM P-R Int : 144 ms QRS Dur : 090 ms QT Int : 342 ms P-R-T Axes : 029 006 030 degrees QTc Int : 420 ms Normal sinus rhythm Normal ECG Confirmed by SHARITA STILES M.D. ([id number]), movie editor BALBIR SANDS ([id number]) on 10/30/2018 4:54:55 PM Referred By: Confirmed By:SHARITA STILES M.D.
== END 2018-10-28 12:04 | disposition home or self-care (01) ==
LOC: ERS 01:56
DX: T52.0X2A Toxic effect of petroleum products, intentional self-harm, initial encounter (principal); F20.9 Schizophrenia, unspecified
CPT/HCPCS: 71045; 80053; 80307; 85025; 93005